=== PATIENT | female | born 1990 | race African-American/Black ===

== ENCOUNTER 2018-10-09 17:34 | Emergency (ER) | payer SELFPAY ==
[~2018-10-09] VITALS: Ht 165.1 cm; Wt 44.5 kg
[~2018-10-09 17:34] MED LIST: MEDR150D3 IM; NAPR-682 PO
[2018-10-09 17:54] VITALS: BP 119/71
[2018-10-09] MEDS ORDERED: IBUP-1007 PO (18:22)
[2018-10-09] MEDS ORDERED: PRED20TA PO (18:22)
--- NOTE | 2018-10-09 18:23 | PHYS DOC ---
Past Medical History Past Medical History: No Pertinent History Past Surgical History: No Surgical History Alcohol Use: None Drug Use: None Adult General Chief Complaint Chief Complaint: LOWER EXT PAIN [facility] HPI Patient is a 27 year old female who presents with left leg pain that is sharp and shooting and comes and goes starts at the bottom of her left leg and shoots up to mid thigh since 2009. She states that today it started shooting up her leg and now there is a shooting pain into her mid thigh. Patient states it started this morning. She states she's taken no medications for and has no known injury. She denies any chest pain or shortness of air. She rates her pain 8 out of 10. She has no known drug allergies and takes no medications daily or control pills. Review of Systems Review of Systems Constitutional: Denies fever or chills [] Eyes: Denies change in visual acuity, redness, or eye pain [] HENT: Denies nasal congestion or sore throat [] Respiratory: Denies cough or shortness of breath [] Cardiovascular: No additional information not addressed in HPI [] GI: Denies abdominal pain, nausea, vomiting, bloody stools or diarrhea [] : Denies dysuria or hematuria [] Musculoskeletal: Chronic sharp shooting pain since 2009 that begins at bottom of leg and radiates up to mid thigh. Denies back pain or joint pain [] Integument: Denies rash or skin lesions [] Neurologic: Denies headache, focal weakness or sensory changes [] Endocrine: Denies polyuria or polydipsia [] All other systems were reviewed and found to be within normal limits, except as documented in this note. Allergies Allergies Allergies Coded Allergies Type Severity Reaction Last Updated Verified No Known Drug Allergies 08/27/15 No Physical Exam Physical Exam Constitutional: Well developed, well nourished, no acute distress, non-toxic appearance. [] HENT: Normocephalic, atraumatic, bilateral external ears normal, oropharynx moist, no oral exudates, nose normal. [] Eyes: PERRLA, EOMI, conjunctiva normal, no discharge. [] Neck: Normal range of motion, no tenderness, supple, no stridor. [] Cardiovascular:Heart rate regular rhythm, no murmur [] Lungs & Thorax: Bilateral breath sounds clear to auscultation [] Abdomen: Bowel sounds normal, soft, no tenderness, no masses, no pulsatile masses. [] Skin: Warm, dry, no erythema, no rash. [] Back: No tenderness, no CVA tenderness. [] Extremities: Mid thigh tenderness, no cyanosis, no clubbing, ROM intact, no edema. [] Neurologic: Alert and oriented X 3, normal motor function, normal sensory function, no focal deficits noted. [] Psychologic: Affect normal, judgement normal, mood normal. [] Current Patient Data Vital Signs Vital Signs Date Time Temp Pulse Resp B/P (MAP) Pulse Ox O2 Delivery O2 Flow Rate FiO2 10/09/18 17:54 98.2 69 16 119/71 (87) 100 Room Air 98.2 EKG EKG [] Radiology/Procedures Radiology/Procedures [] Course & Med Decision Making Course & Med Decision Making Patient is a 27 year old female who presents with left leg pain that is sharp and shooting and comes and goes starts at the bottom of her left leg and shoots up to mid thigh since 2009. She states that today it started shooting up her leg and now there is a shooting pain into her mid thigh. Patient states it started this morning. She states she's taken no medications for and has no known injury. She denies any chest pain or shortness of air. She rates her pain 8 out of 10. She has no known drug allergies and takes no medications daily or control pills. Skin pink warm and dry. Lungs are clear to auscultation in all lobes. Heart regular no murmur. Skin color is appropriate for brace. There is no swelling, redness in the affected leg. Patient is ambulatory with a steady gait. Patient will be given a low-dose prednisone and ibuprofen to take. Pedal pulse is strong in the left leg. Alert and oriented. Dragon Disclaimer Dragon Disclaimer This electronic medical record was generated, in whole or in part, using a voice recognition dictation system. Departure Departure Impression: Primary Impression: Leg pain Disposition: 01 HOME, SELF-CARE Condition: STABLE Referrals: NO PCP (PCP) Patient Instructions: Pain, Neuropathic Additional Instructions: Follow-up with primary care. Take medications as prescribed. Return for swelling of the leg, redness, numbness, tingling, or change or weakness of the leg. Scripts Prednisone (PREDNISONE) 20 Mg Tablet 1 TAB PO DAILY, #5 TAB Prov: YARELY DANIELLE APRN 10/09/18 Ibuprofen (IBUPROFEN) 600 Mg Tablet 600 MG PO PRN Q6HRS PRN for INFLAMMATION, #20 TAB Prov: YARELY DANIELLE APRN 10/09/18 Problem Qualifiers Primary Impression: Leg pain Laterality: left Qualified Codes: M79.605 - Pain in left leg YARELY DANIELLE APRN Oct 09, 2018 18:23
== END 2018-10-09 18:40 | disposition home or self-care (01) ==
LOC: ER 17:34
DX: M79.605 Pain in left leg (principal); G89.29 Other chronic pain
CPT/HCPCS: 99283